=== PATIENT | male | born 1975 | race Caucasian/White ===

== ENCOUNTER → 2016-11-28 | Outpatient (CLI) | payer BC | END | disposition home or self-care (01) | LOC: GMAL 13:04 | PROVIDERS: ATTEND Family Medicine | DX: D51.3 Other dietary vitamin B12 deficiency anemia (principal); Z00.01 Encounter for general adult medical examination with abnormal findings; E55.9 Vitamin D deficiency, unspecified ==

== ENCOUNTER → 2017-02-27 | Outpatient (CLI) | payer BC | END | disposition home or self-care (01) | LOC: GMAL 10:03 | PROVIDERS: ATTEND Family Medicine | DX: D51.3 Other dietary vitamin B12 deficiency anemia (principal); M10.09 Idiopathic gout, multiple sites; E55.9 Vitamin D deficiency, unspecified ==

== ENCOUNTER 2017-05-16 17:41 | Emergency (ER) | payer BC ==
[2017-05-16 17:55] VITALS: TEMP 98.9
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
[2017-05-16] MEDS ORDERED: NEOMYCIN-BACITRACIN-POLYMYXIN 0.9 GM UD TOP ONE ×2 (18:50→19:32)
[2017-05-16] MEDS ORDERED: CHLORHEXIDINE GLUCONATE 4 % 15 ML UD TOP ONE (18:50)
[2017-05-16] MEDS ORDERED: HYDROcodone 10MG/APAP 325MG 1 EA TAB PO ONE (19:03)
[2017-05-16] MEDS ORDERED: KETOROLAC TROMETHAMINE INJ 30 MG/ML VIAL IM ONE (19:03)
[2017-05-16] MEDS ORDERED: ORPHENADRINE CITRATE 30 MG/ML AMP IM ONE (19:03)
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
[2017-05-16] MEDS ORDERED: HYDROCOD/APAP 10/325 (ER DISP) # 3 tablets PO ONE (19:32)
[2017-05-16 19:51] VITALS: BP 112/78; O2SAT 95
== END 2017-05-16 19:59 | disposition home or self-care (01) ==
LOC: ER 17:41
DX: S50.312A Abrasion of left elbow, initial encounter (principal); M79.662 Pain in left lower leg; E11.9 Type 2 diabetes mellitus without complications; I10 Essential (primary) hypertension; V86.59XA Driver of other special all-terrain or other off-road motor vehicle injured in nontraffic accident, initial encounter; Y92.9 Unspecified place or not applicable
CPT/HCPCS: 73080; 73560; 73590; 73610; 73630; J1885; J2360

== ENCOUNTER 2017-11-28 20:15 | Emergency (ER) | payer BC ==
[2017-11-28] MEDS ORDERED: SODIUM CHLORIDE 0.9% 1000ML 1,000 ML ONE (20:19)
[2017-11-28] MEDS ORDERED: SODIUM CHLORIDE 0.9% 1000ML 1,000 ML IVS ONE ×2 (20:20→20:45)
[2017-11-28] MEDS ORDERED: SODIUM CHLORIDE 0.9% 1000ML 1,000 ML IVS PRN (21:08)
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
[2017-11-28 22:34] VITALS: O2SAT 94
[2017-11-28 23:17] VITALS: BP 108/79; TEMP 98.2
== END 2017-11-28 23:17 | disposition home or self-care (01) ==
LOC: ER 20:15
DX: T67.5XXA Heat exhaustion, unspecified, initial encounter (principal); R41.82 Altered mental status, unspecified; R00.0 Tachycardia, unspecified; R11.2 Nausea with vomiting, unspecified; I10 Essential (primary) hypertension; E11.9 Type 2 diabetes mellitus without complications; Z79.899 Other long term (current) drug therapy; X58.XXXA Exposure to other specified factors, initial encounter; Y92.828 Other wilderness area as the place of occurrence of the external cause
CPT/HCPCS: 80053; 82550; 82553; 84484; 85025; 93005; J7030

== ENCOUNTER 2019-07-04 23:32 | Emergency (ER) | payer SELFPAY ==
[2019-07-04] MEDS ORDERED: TETANUS,DIPHTHERIA,PERTUSSIS 1 EA SYG IM ONE (23:41)
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
[2019-07-04 23:47] VITALS: TEMP 99; O2SAT 95
[2019-07-05 00:02] VITALS: BP 176/119
== END 2019-07-05 00:04 | disposition home or self-care (01) ==
LOC: ER 23:32
DX: S06.0X0A Concussion without loss of consciousness, initial encounter (principal); S00.83XA Contusion of other part of head, initial encounter; S00.81XA Abrasion of other part of head, initial encounter; Y04.0XXA Assault by unarmed brawl or fight, initial encounter; E11.9 Type 2 diabetes mellitus without complications; I10 Essential (primary) hypertension; Z79.84 Long term (current) use of oral hypoglycemic drugs; Z79.899 Other long term (current) drug therapy; Y92.009 Unspecified place in unspecified non-institutional (private) residence as the place of occurrence of the external cause

== ENCOUNTER → 2020-06-14 | Outpatient (CLI) | payer BC | LOC: GMAL 19:19 | PROVIDERS: ATTEND Family Medicine | DX: M10.09 Idiopathic gout, multiple sites (principal); R53.83 Other fatigue; E78.49 Other hyperlipidemia; I10 Essential (primary) hypertension ==

== ENCOUNTER → 2020-07-13 | Outpatient (CLI) | payer BC | LOC: GMAL 10:49 | PROVIDERS: ATTEND Family Medicine | DX: M10.9 Gout, unspecified (principal) ==

== ENCOUNTER → 2020-08-04 | Outpatient (CLI) | payer BC | LOC: GMAL 12:42 | PROVIDERS: ATTEND Family Medicine | DX: M10.09 Idiopathic gout, multiple sites (principal) ==